=== PATIENT | female | born 1945 | race Two or more races ===

== ENCOUNTER 2016-06-10 14:43 | Emergency (ER) | payer MEDICARE, OTHER ==
--- NOTE | 2016-06-10 16:18 | RAD ---
CHEST - 2 VIEWS COMPARISON: None. HISTORY: Cough for one week. FINDINGS: Views: Frontal and lateral chest Lungs: Linear opacities in both lung bases. Heart and vessels: Normal Trachea and bronchi: Normal Mediastinum and bridger: Normal Costophrenic sulci: Normal Chest wall and bones: Thoracic hyperkyphosis and spondylosis. Upper abdomen: Normal. IMPRESSION: No acute finding. Thoracic hyperkyphosis and spondylosis with some minimal atelectasis in the lung bases.
[2016-06-10] MEDS ORDERED: ALBUTEROL/IPRATROPIUM 2.5/0.5 MG 3 ML/EACH DOSE ONE (16:33)
== END 2016-06-10 17:03 | disposition home or self-care (01) ==
LOC: ED 14:43
DX: R05 Cough (principal); R06.02 Shortness of breath